=== PATIENT | female | born 1990 | race Two or more races ===

== ENCOUNTER → 2016-12-30 | Outpatient (CLI) | payer OTHER ==
--- NOTE | ~2016-12-30 | CR170 ---
[facility] A Service of [facility] & [facility] RADIOLOGY TEXT RESULTS PATIENT: RORO ANDRE LOCATION: [facility] : 86 UNIT #: [id number] AGE: [address]: Generic Doctor NOT IN SYSTEM SEX: F ORDER DR: [id number] [facility] [address] [place], [place] [address] [id number] O MR#: [id number] Acc #: [id number] NAME: RORO ANDRE : 1990 SEX: F STUDY DATE/TIME: 12/30/2016 15:51 UNIT: [facility] ROOM: STUDY DESCRIPTION: CR Knee 2 Views Rt Attending Physician: Generic Doctor Not In System Referring Physician: Generic Doctor Not In System Ordering Physician: Physician Non-Staff Primary Care Physician: [facility] Nicki MEDICAL IMAGING REPORT This report is preliminary unless electronic signature is present EXAM Right knee 2 views, 12/30/2016. HISTORY Right knee pain for 2 weeks status post fall. FINDINGS AP and lateral projection of the knee shows smooth articular anatomy without indication of fracture or dislocation at the major weight-bearing surface of the knee. There is no indication of radiopaque foreign body about the knee surface or joint effusion. IMPRESSION Normal knee. Dictated by... Max Tavares M.D. THIS IS AN ELECTRONICALLY VERIFIED REPORT Max Tavares M.D. at 12/31/2016 2:12 PM KRT/severino TD: 12/31/2016 07:00 JOB #: [id number] MEDICAL IMAGING REPORT Page 1 of 1 COPY
== END | disposition home or self-care (01) ==
LOC: CRAD 15:39
DX: M12.561 Traumatic arthropathy, right knee (principal)
CPT/HCPCS: 73560